=== PATIENT | male | born 2000 | race Two or more races ===

== ENCOUNTER 2025-01-23 17:39 | Emergency (ER) | payer MEDICAID, OTHER ==
[~2025-01-23] VITALS: Ht 167.6 cm; Wt 68.2 kg
--- NOTE | 2025-01-23 18:59 | ED.PDOC ---
Psychiatric HPI Comments This is a 24-year-old male with past medical history of depression, anxiety and schizophrenia brought in by EMS due to suicidal idea. Per patient, he has been in alcohol rehab center for six-month, today morning he left the Center, drank alcohol, and had intrusive ideas of hurting/killing himself. He reports of having suicidal ideas since 1 year, but today since leaving the rehab center has been worsened. He reports of visual hallucination, seeing people, whispering, and saying to him to kill himself. He reports of ideas of throw himself in front of car to kill himself. Due to these intrusive thoughts, he called the EMS by himself, and reported that I need to be physically restrained, and to be called [id number] due to his suicidal ideas. Per patient, he had suicidal attempt last year, (overdosed himself with methamphetamine). Prior to being at rehab center, he was homeless in [place]. Previously he was on Zyprexa, but has not use the medicine since six-month. He also reports of smoking cigarettes. Chief Complaint: Suicidal Time Seen by MD: 17:55 Mode of Arrival: EMS Past Medical History PAST MEDICAL HISTORY: Depression, Schizophrenia Past Medical History (Other): Anxiety and schizophrenia Surgical History: Denies all surgeries Family History Family History: Reviewed,noncontributory to illness, No family hx of Cancer, No family hx of DM, No family hx of Heart viv, No family hx of HTN, No family hx ofKidney viv, No family hx of Liver viv, No family hx of Lung viv, No family hx of Stroke Social History Smoker: Non-Smoker Alcohol: Denies ETOH Use Drugs: Denies Drug Use Constitutional: denies: chills, diaphoresis, fatigue, fever, malaise, sweats, weakness, others EENTM: denies: blurred vision, double vision, ear bleeding, ear discharge, ear drainage, ear pain, ear ringing, eye pain, eye redness, hearing loss, mouth pain, mouth swelling, nasal discharge, nose bleeding, nose congestion, nose pain, photophobia, tearing, throat pain, throat swelling, voice changes, others Respiratory: denies: cough, hemoptysis, orthopnea, SOB at rest, shortness of breath, SOB with excertion, stridor, wheezing, others Cardiovascular: denies: chest pain, dizzy spells, diaphoresis, Dyspnea on exertion, edema, irregular heart beat, left arm pain, lightheadedness, palpitations, PND, syncope, others Gastrointestinal: denies: abdomen distended, abdominal pain, blood streaked bowels, constipated, diarrhea, dysphagia, difficulty swallowing, hematemesis, melena, nausea, poor appetite, poor fluid intake, rectal bleeding, rectal pain, vomiting, others Genitourinary: denies: burning, dysuria, flank pain, frequency, hematuria, incontinence, penile discharge, penile sore, pain, testicle pain, testicle swelling, urgency, others Neurological: denies: dizziness, fainting, headache, left sided numbness, left sided weakness, numbness, paresthesia, pre-existing deficit, right sided numbness, right sided weakness, seizure, speech problems, tingling, tremors, w eakness, others Musculoskeletal: denies: back pain, gout, joint pain, joint swelling, muscle pain, muscle stiffness, neck pain, others Integumetry: denies: bruises, change in color, change in hair/nails, dryness, laceration, lesions, lumps, rash, wounds, others Allergic/Immunocompromised: denies: Difficulty Healing, Frequent Infections, Hives, Itching, others Hematologic/Lymphatic: denies: anemia, blood clots, easy bleeding, easy bruising, swollen glands, others Endocrine: denies: excessive hunger, excessive sweating, excessive thirst, excessive urination, flushing, intolerance to cold, intolerance to heat, unexplained weight gain, unexplained weight loss, others Psychiatric: denies: anxiety, bipolar disorder, depression, hopeless, panic disorder, schizophrenia, sleepless, suicidal, others Physical Exam General Appearance: No Apparent Distress, Normal HEENT: Normal ENT Inspection, Pharynx Normal, TMs Normal Neck: Full Range of Motion, Non-Tender, Normal, Normal Inspection Respiratory: Chest Non-Tender, Lungs Clear, No Accessory Muscle Use, No Respiratory Distress, Normal Breath Sounds Cardiovascular: No Edema, No JVD, No Murmur, No Gallop, Normal Peripheral Pulses, Regular Rate/Rhythm Breast Exam: Deferred Gastrointestinal: No Organomegaly, Non Tender, No Pulsatile Mass, Normal Bowel Sounds, Soft Genitalia: Deferred Pelvic: Deferred Rectal: Deferred Extremities: No calf tenderness, Normal capillary refill, Normal inspection, Normal range of motion, Non-tender, No pedal edema Neurologic: Alert, leadership development manager II-XII nml as Tested, No Motor Deficits, Normal Affect, Normal Mood, No Sensory Deficits Cerebellar Function: Normal Reflexes: Normal Skin: Dry, Normal Color, Warm Lymphatic: No Adenopathy Was a procedure done? Was a procedure done?: No Psych Differential Dx Psych. Differential Dx: Anxiety, Bipolar Disorder, Depression, Suicidal OD Differential Dx: Encephalopathy, Hallucinations Suicidal Differential Dx: Schizoprenia Intoxication Differential Dx: Drug-Induced Psychosis X-Ray, Labs, Meds, VS Vital Signs Date Time Temp Pulse Resp B/P (MAP) Pulse Ox O2 Delivery O2 Flow Rate FiO2 01/23/25 17:40 98.6 77 18 121/76 99 98.6 Lab Test 01/23/25 18:57 01/23/25 18:55 Range/Units Urine Color [place] H Yellow Urine Clarity Turbid H Clear Urine pH 5.0 5.0-9.0 Urine Specific [place] 1.029 1.001-1.035 Urine Protein 1+ H Negative Urine Ketones Trace Negative Urine Blood Negative Negative /uL Urine Nitrite Negative Negative Urine Bilirubin Negative Negative Urine Urobilinogen 4 H Negative mg/dL Urine Leukocyte Esterase Negative Negative /uL Urine RBC 2 0 - 3 /hpf Urine Microscopic WBC 5 H 0-3 /HPF Urine Squamous Epithelial Cells Few <5 /hpf Urine Bacteria Few H None Seen /hpf Urine Hyaline Casts Many 0 - 2 /lpf Urine Mucus Few None Seen Urine Glucose Normal Normal mg/dL Urine Opiates Screen Neg NEGATIVE Urine Fentanyl Screen Neg NEGATIVE Urine Barbiturates Screen Neg NEGATIVE Urine Phencyclidine Screen Neg NEGATIVE Urine Amphetamines Screen Neg NEGATIVE Urine Benzodiazepines Screen Neg NEGATIVE Urine Cocaine Screen Neg NEGATIVE Urine Cannabinoids Screen Neg NEGATIVE White Blood Count 8.8 4.4-10.8 10^3/uL Red Blood Count 5.29 4.5-5.90 10^6/uL Hemoglobin 16.0 13.5-17.5 g/dL Hematocrit 46.2 41.0-53.0 % Mean Corpuscular Volume 87.3 80.0-100.0 fL Mean Corpuscular Hemoglobin 30.3 28.0-32.0 pg Mean Corpuscular Hemoglobin Concent 34.7 32.0-36.0 g/dL Red Cell Distribution Width 14.2 11.8-14.3 % Platelet Count 377 140-450 10^3/uL Mean Platelet Volume 7.0 6.9-10.8 fL Neutrophils (%) (Auto) 59.9 37.0-80.0 % Lymphocytes (%) (Auto) 30.5 10.0-50.0 % Monocytes (%) (Auto) 8.6 0.0-12.0 % Eosinophils (%) (Auto) 0.4 0.0-7.0 % Basophils (%) (Auto) 0.6 0.0-2.0 % Neutrophils # (Auto) 5.3 1.6-8.6 10 ^3/uL Lymphocytes # (Auto) 2.7 0.4-5.4 10 ^3/uL Monocytes # (Auto) 0.8 0-1.3 10 ^3/uL Eosinophils # (Auto) 0 0-0.8 10 ^3/uL Basophils # (Auto) 0 0-0.2 10 ^3/uL Nucleated Red Blood Cells 0.1 % Sodium Level 143 136-145 mmol/L Potassium Level 3.8 3.5-5.1 mmol/L Chloride Level 107 98-107 mmol/L Carbon Dioxide Level 23 20-31 mmol/L Anion Gap 13 5-15 Blood Urea Nitrogen 10 9-23 mg/dL Creatinine 0.91 0.700-1.30 mg/dL Glomerular Filtration Rate Calc 119 >90 mL/min BUN/Creatinine Ratio 11.0 10.0-20.0 Serum Glucose 91 74-106 mg/dL Calcium Level 9.3 8.7-10.4 mg/dL Magnesium Level 2.3 1.6-2.6 mg/dL Total Bilirubin 0.8 0.2-1.0 mg/dL Aspartate Amino Transferase (AST) 26 13-40 U/L Alanine Aminotransferase (ALT) 30 7-40 U/L Alkaline Phosphatase 90 46-116 U/L Total Protein 7.7 5.7-8.2 g/dL Albumin 4.7 3.2-4.8 g/dL Plasma/Serum Blood Alcohol 193.8 H <10 mg/dL Time of 1ST Reevaluation: 22:22 Reevaluation 1ST: Unchanged Patient Education/Counseling: Diagnosis, Treatment, Prognosis, Need For Follow Up Family Education/Counseling: No Family Present Comments Patient came to the hospital due to suicidal ideation. Patient was vitally stable. CBC, and CMP within normal. UDS shows normal saline Serum alcohol level was raised. Patient was given IV normal saline, folic acid and thiamine CIWA score was 7 Patient will be kept in ED for observation Telepsych consultation Departure 1 Departure Time of Disposition: 22:24 Impression: Primary Impression: Suicidal ideation Additional Impression: Alcohol intoxication Disposition: 30 STILL A PATIENT Admit to: Med Surg Condition: Guarded Critical Care Note Critical Care Time?: No Stability Stability form required: No Heart Score Heart Score: Heart Score Response (Comments) Value History N/A 0 EKG N/A 0 Age N/A 0 Risk Factors N/A 0 Troponin N/A 0 Total 0 CRYSTAL KAM Jan 23, 2025 18:59
[2025-01-23 19:14] LABS: Hematocrit 46.2 % (41.0-53.0); Hemoglobin 16.0 g/dL (13.5-17.5); Mean Corpuscular Hemoglobin 30.3 pg (28.0-32.0); Mean Corpuscular Volume 87.3 fL (80.0-100.0); Nucleated Red Blood Cells % 0.1 %
[2025-01-23 19:23] LABS: Urine Protein, UAD 1+ (Negative)
[2025-01-23 19:26] LABS: Amphetamine Screen, Urine Neg (NEGATIVE); Barbiturate Scree,Urine Neg (NEGATIVE); Benzodiazephine Screen, Urine Neg (NEGATIVE); Cocaine Screen, Urine Neg (NEGATIVE)
[2025-01-23 19:29] LABS: Alanine Aminotransferase 30 U/L (7-40); Albumin 4.7 g/dL (3.2-4.8); Alkaline Phosphatase 90 U/L (46-116); Anion Gap 13 (5-15); BUN/Creatinine Ratio 11.0 (10.0-20.0); Blood Urea Nitrogen 10 mg/dL (9-23); Calcium 9.3 mg/dL (8.7-10.4); Carbon Dioxide 23 mmol/L (20-31); Chloride 107 mmol/L (98-107); Glucose 91 mg/dL (74-106); Magnesium 2.3 mg/dL (1.6-2.6); Potassium 3.8 mmol/L (3.5-5.1); Sodium 143 mmol/L (136-145); Total Protein 7.7 g/dL (5.7-8.2)
[2025-01-23 19:30] LABS: Bilirubin, Total 0.8 mg/dL (0.2-1.0)
[2025-01-23 19:41] LABS: Cannabinoid Screen, Urine Neg (NEGATIVE); Opiate Scree,Urine Neg (NEGATIVE); Phencyclidine Screen, Urine Neg (NEGATIVE)
[2025-01-23] MEDS ORDERED: LORazepam 2MG/ML-1ML VIAL IV PRN (22:30)
--- NOTE | 2025-01-24 06:43 | DVHINCON2 ---
Date of Service if different f: Jan 24, 2025 Time of Service: 06:21 Consult Consult Note PSYCHIATRY ED NEW CONSULT HPI: 24 yo pt with PPH of depression, ETOH use disorder, psychosis vs schizophrenia, and anxiety presents to ED BIBA for safety, psychiatric stabilization, and possible med initiation/optimization in setting of passive SI. Psychiatry consulted for safety evaluation and recommendations in context of current presentation Pt reports over past several weeks experiencing worsening depressed mood, negative/intrusive thoughts of /dying, CAH to hurt self, unspecified anxiety symptoms, etc Also chronic SI that's worsened over past several days with plan to walk into traffic. Also self-medicating with increased ETOH use, ETOH level in ED elevated in 190s. States he is currently in a 6 month ETOH rehab program but voluntarily discharged self today as "program does not believe in psychiatric meds or MH therapy, I started hearing voices and felt suicidal" Identifies primary stress as unemployment, inadequate housing, limited support system, and chronic struggles with ETOH/meth dependency. Denies HI/paranoia/catatonic/perceptual disturbances Does not have active outpt MH services established at this time although has sought outpt MH services in past. Currently not on any psychotropic agents for past year, prior psych med trials include olanzapine, sertraline Admits to ETOH use [employer], moderate hx of ETOH/meth (DOC) dependency for many years, including IVDU, last used meth over 6 months ago, recently enrolled in alcohol rehab center for past 6 months Single, no children, unemployed, homeless for almost a year in [place] but checked into ETOH rehab tx center ~ 6 months ago but voluntarily d/c self today, limited support system noted Unknown trauma hx. Denies FH of psych hospitalizations, suicide attempts, or completed suicides No acute medical/chronic pain issues, hx of seizures/TBI, or recent head injuries, NKDA Denies hx of SI/SIB via hitting / cutting self/SA x 1 in 2023 via meth OD resulting in several prior psych hospitalizations/5150 holds, last admission in [address] in [place]. Denies history of violence, aggression, or assaultive behaviors. Denies any legal problems. Does not have access to firearms MSE: General Appearance/Behavior: Alert/awake; appears stated age, fair grooming/hygiene; calm/polite and cooperative, fair eye contact, no PMA/PMR Speech: coherent, rrr Thought Process: L/L/GD Thought Content: Abnormal Thoughts/Perceptions: denies dissociative symptoms Homicidality / Violent Thoughts: adamantly denies HI Suicidality: + SI Hallucinations: +CAH Delusions: denies paranoia, persecutory, or grandiose delusions Obsessions /compulsions: None Judgment/Insight: fair/fair Mood & Affect: "depressed" with mood-congruent, somewhat restricted/appropriate Orientation: oriented x 3 Attention/Concentration: appears intact Cognition: grossly intact Assessment: 24 yo pt with PPH of depression, ETOH use disorder, psychosis vs schizophrenia, and anxiety presents to ED BIBA for safety, psychiatric stabilization, and possible med initiation/optimization in setting of acute ETOH intoxication and passive SI. . Pt currently expressing some SI with moderate interference in daily functioning in setting of several recent life stressors (see hpi). Limited protective factors presently. Not on any psychotropics which may be contributing to current symptoms. No outpt MH services at present. Hx of SIB/SA and poor judgment/impulsivity resulting in prior psych hospitalizations. Pt agrees to talk with staff instead of acting on any suicidal feelings while in ED. Pt medically cleared in ED Acute safety risk remains elevated and is appropriate for inpatient psychiatric admission for further safety, psychiatric stabilization, and possible medication initiation/optimization. Pt willing to transfer to inpt psych facility voluntarily. Consider 5150 hold for DTS ONLY if needed for transfer or if no voluntary beds are available. Pt may also benefit from housing/subst abuse/MH resources during this admission Primary Diagnosis: Schizoaffective disorder, depressed type. ETOH use disorder, unspecified. METH use disorder, in partial remission Recommend VOL transfer to inpt psych facility for higher level of care 1:1 sitter is recommended Maintain suicide precautions Recommend restarting previous outpt med regimen - olanzapine 5 mg qhs and sertraline 50 mg qd (first doses now) Defer any psychotropic med changes to accepting inpt psych facility Risks/benefits/alternative treatments discussed, informed consent provided by pt If patient later refuses voluntary hospitalization/ requests to be discharged from ED prior to transfer, please reconsult telepsych services to evaluate for 5150 hold Pt verbalized understanding and is receptive to above tx plan This case was discussed with ED nurse/provider and all parties in agreement with above tx plan Rodolfo Ivan MD Plan discussed with: Patient RODOLFO IVAN MD Jan 24, 2025 06:43
[2025-01-24] MEDS: THIAMINE 100mg/ml INJ (200mg/2ml VIAL) IV ONE (07:38)
[2025-01-24] MEDS: SODIUM CHLORIDE 0.9% 500 ML IV ONE (07:38)
[2025-01-24] MEDS: FOLIC ACID 1 MG in D5W 5% 50 ML INJ ONE (07:38)
[2025-01-24 07:46] VITALS: PULSE 56; RESP 16; O2SAT 97
[2025-01-24 11:57] VITALS: BP 141/75; PULSE 60; RESP 18; TEMP 98.3; O2SAT 97
== END 2025-01-24 12:15 ==
LOC: ER 17:39 → EDBD 17:39 → ER 01-24 12:15
DX: R45.851 Suicidal ideations (principal); F10.129 Alcohol abuse with intoxication, unspecified; F41.9 Anxiety disorder, unspecified; F25.1 Schizoaffective disorder, depressive type; F32.A Depression, unspecified; Y90.6 Blood alcohol level of 120-199 mg/100 ml
CPT/HCPCS: 36415; 80053; 80307; 80320; 81001; 83735; 85025; J7060